=== PATIENT | male | born 1955 | race Caucasian/White ===

== ENCOUNTER → 2025-02-05 | Outpatient (CLI) | payer MEDICARE ==
[~2025-02-05] MED LIST: ALBU8.5H; IRBE300T25
== END ==
LOC: M PLARAD 10:00
PROVIDERS: ATTEND Internal Medicine Hematology & Oncology
DX: C34.2 Malignant neoplasm of middle lobe, bronchus or lung (principal); C61 Malignant neoplasm of prostate
CPT/HCPCS: 78815; A9552